=== PATIENT | male | born 1995 | race Caucasian/White ===

== ENCOUNTER → 2020-12-20 12:43 | Outpatient (CLI) | payer OTHER, MEDICAID, SELFPAY ==
--- NOTE | 2020-12-20 12:46 | DI.US.S_ITS ---
PROCEDURE: US SCROTUM INDICATIONS: LEFT TESTICULAR PAIN TECHNIQUE: Real-time scanning was performed of the scrotum and testicles, with image documentation. Color and pulse Doppler interrogation was performed of both testicles. COMPARISON: None. FINDINGS: Right: Testicle is normal in size at 4.3 x 2.7 x 3.7 cm, and homogenous in echotexture. Epididymis is normal in overall size and morphology. No hydrocele or varicoceles. Overlying scrotal skin is normal in thickness. Left: Testicle is normal in size at 3.9 x 2.3 x 2.6 cm, and homogeneous in echotexture. Epididymis is normal in overall size and morphology. No hydrocele or varicoceles. Overlying scrotal skin is normal in thickness. Doppler: Color and pulse Doppler demonstrate normal and symmetric arterial flow in both testicles. IMPRESSION: Unremarkable ultrasound examination of bilateral testes. No finding to explain patient's symptoms. Dictated by: Miguelangel Courtney M.D. on 12/20/2020 at 15:40 Approved by: Miguelangel Courtney M.D. on 12/20/2020 at 15:57
== END ==
PROVIDERS: Referring Provider Physician Assistant; Visit Provider Physician Assistant
DX: N50.812 Left testicular pain (principal)
CPT/HCPCS: 76870

== ENCOUNTER 2020-12-23 12:04 | Emergency (ER) | payer OTHER, MEDICAID, SELFPAY ==
[2020-12-23 12:16] VITALS: BP 155/83; PULSE 81; RESP 16; TEMP 36.5; O2SAT 98; BMI 32.3
--- NOTE | 2020-12-23 12:38 | ED.ABDPAIN ---
HPI - Abdominal Pain <JANELL Blanc - Last Filed: 12/23/20 17:08> General Chief Complaint: Abdominal Pain Stated Complaint: Abdominal Pain Time Seen by Provider: 12/23/20 12:08 Source: patient Mode of arrival: Family Vehicle Limitations: no limitations History of Present Illness HPI narrative: 25yo male presents to the ED for L testicular pain that started on 12/13/20 and has progressed to RLQ pain without relief.?Initially, patient felt a sharp stabbing pain while driving his car, and has been intermittently having sharp pain that radiates to his testicles, RLQ, RUQ, and suprapubic area. He was seen in the [facility] for testicular pain on 12/14/20. Last night he reports that his pain progressed significantly and he continues to have dull aching that is intermittent and transient in location.? Denies sharp stabbing pain at this moment.? 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 Denies any fever, penile discharge, swelling, redness, severe pain, vomiting, dysuria, or other concerns. His last BM was last evening, last PO intake was last night, denies changes to his urine or stool this week, and denies any STI concerns. Reports has nausea frequently related to his marijuana use and he has felt nauseated recently. Related Data Previous Rx's Medication Instructions Recorded ciprofloxacin HCl 500 mg tablet 500 mg PO BID 10 Days #20 tab 12/23/20 hydrocodone 5 mg-acetaminophen 325 1 tab PO BID PRN #10 tab 12/23/20 mg tablet metronidazole 500 mg tablet 500 mg PO TID 10 Days #30 tab 12/23/20 (Flagyl) Allergies Allergy/AdvReac Type Severity Reaction Status Date / Time sulfamethoxazole Allergy Unknown Verified 12/14/20 10:42 [From ] trimethoprim [From ] Allergy Unknown Verified 12/14/20 10:42 Review of Systems <JANELL Blanc - Last Filed: 12/23/20 17:08> Review of Systems Narrative: General: denies fever, chills Head/Neck: denies headache, neck pain Eyes: denies visual changes, eye pain Cardio: denies chest pain, palpitations Respiratory: denies shortness of breath, cough GI: Endorses right-sided colicky abdominal pain, suprapubic pain, with intermittent testicular pain, denies any vomiting, or diarrhea, reports last stool was soft : denies dysuria, hematuria, changes with urination or color of urine. MSK: denies joint pain, muscle weakness Skin: denies rash, itching Neuro: denies numbness, tingling Patient History <JANELL Blanc - Last Filed: 12/23/20 17:08> Social History Smoking Status: Never smoker Smoking Status: Never smoker alcohol intake frequency: 0-2 drinks per day Substance Use Type: marijuana Exam <JANELL Blanc - Last Filed: 12/23/20 17:08> Narrative Exam Narrative: Independently reviewed vitals signs and nursing notes. General: Awake, alert, nontoxic, no cardiorespiratory distress Head/Neck: Atraumatic, neck full range of motion Eyes: EOMI, conjunctiva normal Nose: nares patent, no rhinorrhea Mouth/Throat: moist mucus membranes, posterior pharynx normal, no oral lesions Cardio: Regular rate and rhythm, no peripheral edema Respiratory: respirations unlabored without wheezing, stridor, or rales. No retractions. GI: Abdomen soft x4 quadrants, no masses palpated, bowel tones hypoactive, pt w/tenderness at McBurney's point, positive psoas sign, negative Rovsing, tenderness to palpation to right lower quadrant and right flank, no discoloration, no rigidity. MSK: Moves all extremities, neurovascularly intact Skin: Normal capillary refill, no rash Neuro: Normal speech and cognition, normal gait Initial Vital Signs Initial Vital Signs: Vital Signs Temperature 97.7 F 12/23/20 12:16 Pulse Rate 81 12/23/20 12:16 Respiratory Rate 16 12/23/20 12:16 Blood Pressure 155/83 H 12/23/20 12:16 Pulse Oximetry 98 12/23/20 12:16 <Connor Diaz DO - Last Filed: 12/23/20 17:21> Initial Vital Signs Initial Vital Signs: Vital Signs Temperature 97.7 F 12/23/20 12:16 Pulse Rate 81 12/23/20 12:16 Respiratory Rate 16 12/23/20 12:16 Blood Pressure 155/83 H 12/23/20 12:16 Pulse Oximetry 98 12/23/20 12:16 Course <JANELL Blanc - Last Filed: 12/23/20 17:08> Orders Ordered: ED Orders 12/23/20 12:56 CT abdomen pelvis w con Stat 12/23/20 13:00 Complete Blood Count AUTO DIFF Stat Comprehensive Metabolic Panel Stat Lipase Stat Urine Microscopic Stat Discontinued Medications Sodium Chloride (Normal Saline 0.9%) 1,000 mls @ 150 mls/hr IV CONT MARIO Last Admin: 12/23/20 12:53 Dose: 150 mls/hr Documented by: ATAYLOR Ketorolac Tromethamine (Ketorolac 30 Mg/Ml Vial) 30 mg IV NOW ONE Stop: 12/23/20 12:36 Last Admin: 12/23/20 12:53 Dose: 30 mg Documented by: CARLOS Vital Signs Vital signs: Vital Signs - 8 hr 12/23/20 12:16 12/23/20 13:34 12/23/20 14:53 Temperature 97.7 F Pulse Rate 81 86 69 Respiratory Rate 16 18 Blood Pressure 155/83 H 120/57 L Pulse Oximetry 98 99 98 12/23/20 15:00 12/23/20 16:41 Temperature Pulse Rate 60 76 Respiratory Rate Blood Pressure 130/65 Pulse Oximetry 98 98 <Connor Diaz DO - Last Filed: 12/23/20 17:21> Orders Ordered: ED Orders 12/23/20 12:56 CT abdomen pelvis w con Stat 12/23/20 13:00 Complete Blood Count AUTO DIFF Stat Comprehensive Metabolic Panel Stat Lipase Stat Urine Microscopic Stat Discontinued Medications Sodium Chloride (Normal Saline 0.9%) 1,000 mls @ 150 mls/hr IV CONT MARIO Last Admin: 12/23/20 12:53 Dose: 150 mls/hr Documented by: ATAYLOR Ketorolac Tromethamine (Ketorolac 30 Mg/Ml Vial) 30 mg IV NOW ONE Stop: 12/23/20 12:36 Last Admin: 12/23/20 12:53 Dose: 30 mg Documented by: ATAYLOR Vital Signs Vital signs: Vital Signs - 8 hr 12/23/20 12:16 12/23/20 13:34 12/23/20 14:53 Temperature 97.7 F Pulse Rate 81 86 69 Respiratory Rate 16 18 Blood Pressure 155/83 H 120/57 L Pulse Oximetry 98 99 98 12/23/20 15:00 12/23/20 16:41 Temperature Pulse Rate 60 76 Respiratory Rate Blood Pressure 130/65 Pulse Oximetry 98 98 MDM - Abdominal Pain <JANELL Blanc - Last Filed: 12/23/20 17:08> Lab Data Result diagrams: 12/23/20 13:00 12/23/20 13:00 Labs: Lab Results 12/23/20 12/23/20 12/23/20 Range/Units 13:00 13:00 13:00 WBC 12.2 H (4.5-11.0) X10^3/uL RBC 5.12 (4.5-5.9) X10^6/uL Hgb 15.7 (13.5-17.5) g/dL Hct 46.9 (41-53) % MCV 91.5 (80-100) fL MCH 30.7 (26-34) PG MCHC 33.6 (30-36) % RDW 12.9 (11.6-14.8) % Plt Count 280 (150-400) X10^3/uL Neut % (Auto) 60.1 (50-75) % Lymph % (Auto) 27.5 (25-40) % [place] % (Auto) 9.1 (3-14) % Eos % (Auto) 2.8 (2-4) % Baso % (Auto) 0.5 (0-2) % Neut # (Auto) 7300 H (8060-6354) /uL Lymph # (Auto) 3400 (2524-0277) /uL [place] # (Auto) 1100 H (0-900) /uL Eos # (Auto) 300 (0-450) /uL Baso # (Auto) 100 (0-100) /uL Sodium 139 (137-145) mmol/L Potassium 4.2 (3.4-5.1) mmol/L Chloride 104 (98-107) mmol/L Carbon Dioxide 27 (22-32) mmol/L BUN 15 (9-20) mg/dL Creatinine 0.82 (0.66-1.25) mg/dL Estimated GFR > 60.0 (>60) mL/min BUN/Creatinine Ratio 18.3 (6-22) Glucose 97 (70-100) mg/dL Calcium 9.5 (8.4-10.2) mg/dL Total Bilirubin 0.8 (0.2-1.3) mg/dL AST 26 (17-59) IU/L ALT 23 (<50) IU/L Alkaline Phosphatase 46 (38-126) U/L Total Protein 8.0 (6.3-8.2) g/dL Albumin 4.8 (3.5-5.0) g/dL Globulin 3.2 (1.7-4.1) g/dL Albumin/Globulin Ratio 1.5 (1.0-2.8) Lipase 60 (23-300) U/L Urine RBC None seen (0-5/HPF) Urine WBC None seen (0-5/HPF) Urine Bacteria None seen (None) Ur Culture Indicated? Cult not indicated Micro UA Comment Microscopic normal Point of care testing: Urine Dip Bedside Urine Glucose Negative Bedside Urine Bilirubin - Negative Bedside Urine Ketone - Negative Urine Specific [place] 1.010 Bedside Urine Occult Blood +/- Bedside Urine pH 7.0 Bedside Urine Protein - Negative Bedside Urine Urobilinogen - Negative Bedside Urine Nitrite - Negative Bedside Urine Leukocytes - Negative Esterase MDM Narrative Medical decision making narrative: 25yo nontoxic appearing male with history of IBS presents to the ED for L testicular pain that started on 12/13/20 and has progressed to colicky RLQ pain without relief. Initial workup revealed a WBC of 12.2 with neutrophils of 7300, UA negative for infection, LFTs within normal limits, lipase is 60, creatinine of 0.8. CT abdomen pelvis shows distal colitis, prostatitis, diverticulitis without appendicitis per verbal dictation from radiologist. Patient was ordered Cipro and Flagyl for 10 days and given strict ED precautions. Initial ddx to include but not limited to appendicitis, cholecystitis, pancreatitis, Crohn's ileitis, epididymitis. Vital signs were within normal limits today. Patient is appropriate and amenable to discharge home. Vital signs are stable on repeat examination is unremarkable. Patient has been informed of results. Patient has been given strict return to ER precautions for any new or worsening symptoms. Patient understands to follow up closely with outpatient providers as instructed. Patient understands plan and agrees to discharge home. All questions and concerns answered at this time. <Connor Diaz DO - Last Filed: 12/23/20 17:21> Lab Data Labs: Lab Results 12/23/20 12/23/20 12/23/20 Range/Units 13:00 13:00 13:00 WBC 12.2 H (4.5-11.0) X10^3/uL RBC 5.12 (4.5-5.9) X10^6/uL Hgb 15.7 (13.5-17.5) g/dL Hct 46.9 (41-53) % MCV 91.5 (80-100) fL MCH 30.7 (26-34) PG MCHC 33.6 (30-36) % RDW 12.9 (11.6-14.8) % Plt Count 280 (150-400) X10^3/uL Neut % (Auto) 60.1 (50-75) % Lymph % (Auto) 27.5 (25-40) % [place] % (Auto) 9.1 (3-14) % Eos % (Auto) 2.8 (2-4) % Baso % (Auto) 0.5 (0-2) % Neut # (Auto) 7300 H (3462-4248) /uL Lymph # (Auto) 3400 (7541-6540) /uL [place] # (Auto) 1100 H (0-900) /uL Eos # (Auto) 300 (0-450) /uL Baso # (Auto) 100 (0-100) /uL Sodium 139 (137-145) mmol/L Potassium 4.2 (3.4-5.1) mmol/L Chloride 104 (98-107) mmol/L Carbon Dioxide 27 (22-32) mmol/L BUN 15 (9-20) mg/dL Creatinine 0.82 (0.66-1.25) mg/dL Estimated GFR > 60.0 (>60) mL/min BUN/Creatinine Ratio 18.3 (6-22) Glucose 97 (70-100) mg/dL Calcium 9.5 (8.4-10.2) mg/dL Total Bilirubin 0.8 (0.2-1.3) mg/dL AST 26 (17-59) IU/L ALT 23 (<50) IU/L Alkaline Phosphatase 46 (38-126) U/L Total Protein 8.0 (6.3-8.2) g/dL Albumin 4.8 (3.5-5.0) g/dL Globulin 3.2 (1.7-4.1) g/dL Albumin/Globulin Ratio 1.5 (1.0-2.8) Lipase 60 (23-300) U/L Urine RBC None seen (0-5/HPF) Urine WBC None seen (0-5/HPF) Urine Bacteria None seen (None) Ur Culture Indicated? Cult not indicated Micro UA Comment Microscopic normal Point of care testing: Urine Dip Bedside Urine Glucose Negative Bedside Urine Bilirubin - Negative Bedside Urine Ketone - Negative Urine Specific [place] 1.010 Bedside Urine Occult Blood +/- Bedside Urine pH 7.0 Bedside Urine Protein - Negative Bedside Urine Urobilinogen - Negative Bedside Urine Nitrite - Negative Bedside Urine Leukocytes - Negative Esterase Discharge Plan Departure Patient Disposition: Home Clinical Impression: Acute prostatitis, Colitis, acute, Diverticulitis of sigmoid colon Instructions: Prostatitis, DI for Diverticulitis, DI for Colitis Activity Restrictions/Additional Instructions: *You have been diagnosed with prostatitis, diverticulitis of sigmoid colon, and distal colitis. *What to do: *Please continue to take your regular medications as directed. [x ] New medication prescriptions sent to your pharmacy: [facility] [ ] New medication written as a paper prescription [ ] No new medications given *Please follow up with your primary care provider in 2-3 days, call for an appointment. Let them know you were seen in the Emergency Department and that we ask that you be seen in follow up. We will electronically transmit a record of today's note if your PCP is in our system *If you do not have a primary care provider please contact the [facility] Resource line at [phone]. They will ask some questions about your medical history and help get you set up with a doctor in the community. *Return to Emergency Department if you should have any new, worsening or concerning symptoms, such as [fever greater than 101F, chills, worsening pain, persistent vomiting or other bothersome symptoms] Prescriptions: New ciprofloxacin HCl 500 mg tablet 500 mg PO BID 10 Days Qty: 20 RF: 0 metronidazole [Flagyl] 500 mg tablet 500 mg PO TID 10 Days Qty: 30 RF: 0 hydrocodone-acetaminophen 5-325 mg tablet 1 tab PO BID PRN (Reason: pain) Qty: 10 RF: 0 <Connor Diaz, DO - Last Filed: 12/23/20 17:21> Cosign ED Attending Cosignature Attestation: Dr Diaz Co-Sign Statement: I was available for consultation during this patient's emergency department visit. This chart is signed by myself for administrative purposes only. I did not have direct contact with this patient during this visit. They were seen independently by the APC.
[2020-12-23] MEDS: SODIUM CHLORIDE 0.9% 1,000 ML 150 ML IV (12:53)
[2020-12-23] MEDS: KETOROLAC 30 MG/ML VIAL IV (12:53)
--- NOTE | 2020-12-23 12:56 | DI.CT.S_ITS ---
PROCEDURE: CT ABDOMEN PELVIS W CON INDICATIONS: c/f appendicitis, RLQ pain TECHNIQUE: After the administration of oral and IV contrast, axial sections were acquired from the lung bases to the pubic symphysis. Coronal and sagittal reformats were performed. For radiation dose reduction, the following was used: automated exposure control, adjustment of mA and/or kV according to patient size. COMPARISON: [facility], CT, ABDOMEN/PELVIS WITH CONTRAST, 09/17/2012, 13:11. FINDINGS: Image quality: Excellent. Lung bases: Unremarkable. Heart: No significant findings. ABDOMEN: Liver: No focal lesion. Gallbladder: No calcified gallstones. Biliary ducts: Unremarkable. Pancreas: Pancreas enhances uniformly. Spleen: Unremarkable. Adrenal Glands: No nodule. Discoid left adrenal gland. Kidneys and Ureters: No hydronephrosis. 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 No obvious kidney stones. Stomach and Bowel: No small bowel obstruction. A few colonic diverticuli. No diverticulitis. Question of mild thickening of the distal sigmoid colon and rectum. Somewhat prominent stool in the rectum. Probable visualization of the appendix which is not dilated. Peritoneum: No abnormal intraperitoneal fluid. No free air. Ventral Wall: No hernia. Abdominal Nodes: No retroperitoneal or mesenteric adenopathy by size criteria. Vessels: Aorta and inferior vena cava are normal in size. PELVIS: Pelvic Organs: Unremarkable. Bladder: Unremarkable. Pelvic Nodes: No enlarged lymph nodes. Miscellaneous: No inguinal hernias are seen. Bones: Unremarkable. IMPRESSION: 1. No appendicitis demonstrated. No free fluid. 2. Subtle sigmoid colon and rectal wall thickening. This raises the possibility of a proctitis or colitis. 3. Diverticulosis. No diverticulitis identified. 4. 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 No hydronephrosis. Dictated by: Willard Mistry M.D. on 12/23/2020 at 12:53 Approved by: Willard Mistry M.D. on 12/23/2020 at 13:01
[2020-12-23 13:13] LABS: Add Manual Diff / Slide Review NO; Basophils Absolute Auto 100 /uL (0-100); Basophils Percent Auto 0.5 % (0-2); Eosinophils Absolute Auto 300 /uL (0-450); Eosinophils Percent Auto 2.8 % (2-4); Hematocrit 46.9 % (41-53); Hemoglobin 15.7 g/dL (13.5-17.5); Lymphocytes Absolute Auto 3400 /uL (1100-4500); Lymphocytes Percent Auto 27.5 % (25-40); Mean Corpuscular HGB Conc 33.6 % (30-36); Mean Corpuscular Hemoglobin 30.7 PG (26-34); Mean Corpuscular Volume 91.5 fL (80-100); Monocytes Absolute Auto 1100 /uL (0-900); Monocytes Percent Auto 9.1 % (3-14); Neutrophils Absolute Auto 7300 /uL (1500-7000); Neutrophils Percent Auto 60.1 % (50-75); Platelet Count 280 X10^3/uL (150-400); Red Blood Cell Count 5.12 X10^6/uL (4.5-5.9); Red Cell Distribution Width 12.9 % (11.6-14.8); White Blood Cell Count 12.2 X10^3/uL (4.5-11.0)
[2020-12-23 13:17] LABS: Bacteria Urine None Seen; RBC Urine None Seen (0-5/HPF); WBC Urine None Seen (0-5/HPF)
[2020-12-23 13:28] LABS: Alanine Aminotransferase 23 IU/L (<50); Albumin 4.8 g/dL (3.5-5.0); Albumin Globulin Ratio 1.5 (1.0-2.8); Alkaline Phosphatase 46 U/L (38-126); Aspartate Aminotransferase 26 IU/L (17-59); BUN Creatinine Ratio 18.3 (6-22); Bilirubin Total 0.8 mg/dL (0.2-1.3); Blood Urea Nitrogen 15 mg/dL (9-20); Calcium 9.5 mg/dL (8.4-10.2); Carbon Dioxide 27 mmol/L (22-32); Chloride 104 mmol/L (98-107); Estimated Glomerular Filt Rate > 60.0 mL/min (>60); Globulin 3.2 g/dL (1.7-4.1); Glucose 97 mg/dL (70-100); HEMOLYSIS 30 (0-50); Lipase 60 U/L (23-300); Potassium 4.2 mmol/L (3.4-5.1); Sodium 139 mmol/L (137-145)
[2020-12-23 13:29] LABS: Culture Indicated Urine Cult Not Indicated; Urine Comments Microscopic Normal
[2020-12-23 13:34] VITALS: BP 120/57; PULSE 86; RESP 18; O2SAT 99
[2020-12-23 14:53] VITALS: PULSE 69; O2SAT 98
[2020-12-23 15:00] VITALS: PULSE 60; O2SAT 98
[2020-12-23 16:41] VITALS: BP 130/65; PULSE 76; O2SAT 98
--- NOTE | 2020-12-29 11:25 | PC.NURSE ---
Late Entry: 550ml normal saline infused, stopped at 1633. 450ml normal saline wasted.
== END 2020-12-23 16:45 | disposition home or self-care (01) ==
PROVIDERS: Emergency Provider Nurse Practitioner Critical Care Medicine
DX: N41.0 Acute prostatitis (principal); K52.9 Noninfective gastroenteritis and colitis, unspecified; K57.32 Diverticulitis of large intestine without perforation or abscess without bleeding; N50.812 Left testicular pain
CPT/HCPCS: 36415; 74177; 80053; 81003; 81015; 83690; 85025; 96361; 96374; 99284; J1885; Q9967

== ENCOUNTER 2021-01-07 10:55 | Emergency (ER) | payer OTHER, MEDICAID, SELFPAY ==
[2021-01-07] VITALS (8 sets, daily range): BP systolic 109–145; BP diastolic 55–79; PULSE 65–92; RESP 12–19; TEMP 36.8; O2SAT 96–99; BMI 30.2
--- NOTE | 2021-01-07 11:12 | ED_ITS ---
HPI - Abdominal Pain General Chief Complaint: Abdominal Pain Stated Complaint: abd pain x3 days Time Seen by Provider: 01/07/21 11:08 Source: patient Mode of arrival: Ambulatory History of Present Illness HPI narrative: Patient is a 26-year-old male who presents with abdominal pain. He has a history of IBS was recently diagnosed with colitis and prostatitis. He placed on Flagyl and Cipro on 12/23/2020 he was given 10 days of antibiotics. He finished them 5 days ago he started having testicular pain which moved up into his abdomen 3 days ago he has had increasing pain since then he has been taking Tylenol without any relief. No fever or chills. No pain with bowel movements painful or frequent urination. No nausea or vomiting. This month he has had a testicular ultrasound CT and blood work. Related Data Previous Rx's Medication Instructions Recorded hydrocodone 5 mg-acetaminophen 325 1 tab PO BID PRN #10 tab 12/23/20 mg tablet Allergies Allergy/AdvReac Type Severity Reaction Status Date / Time sulfamethoxazole Allergy Unknown Verified 01/07/21 11:16 [From ] trimethoprim [From ] Allergy Unknown Verified 01/07/21 11:16 Review of Systems Review of Systems Narrative: GENERAL: Denies chills, fatigue, malaise, fever, sweats, travel HEENT: Denies sinus pain, ear pain, sore throat, difficulty swallowing, neck pain RESPIRATORY: Denies dyspnea, cough, wheezing, hemoptysis, sputum. CARDIOVASCULAR: Denies chest pain, palpitations, orthopnea, edema GASTROINTESTINAL: See HPI : See HPI MUSCULOSKELETAL: Denies weakness, joint pain, or bony pain SKIN: No rash, no erythema, no pruritus NEUROLOGIC: Denies weakness, dizziness, headache, numbness, change in speech, confusion PSYCHIATRIC: No concerning psychosocial issues. 12 point review of systems is negative except for those stated above and HPI Patient History Social History Smoking Status: Never smoker Smoking Status: Never smoker alcohol intake frequency: 0-2 drinks per day Substance Use Type: marijuana Exam Initial Vital Signs Initial Vital Signs: Vital Signs Temperature 98.3 F 01/07/21 11:04 Pulse Rate 81 01/07/21 11:04 Respiratory Rate 14 01/07/21 11:04 Blood Pressure 145/79 H 01/07/21 11:04 Pulse Oximetry 99 01/07/21 11:04 GENERAL: Well-appearing, well-nourished and in no acute distress. HEENT: Head atraumatic,EOMI, pupils reactive, face symmetric, moist mucous membranes CARDIOVASCULAR: Regular rate and rhythm without murmurs, rubs or gallops. RESPIRATORY: Breath sounds equal bilaterally, no wheezes rales or rhonchi. ABDOMEN: Soft, mild left lower quadrant tenderness no guarding no rebound : No CVA tenderness, no testicular pain, no hernia felt however pain in right inguinal canal was tender upon palpation but no hernia no swelling-nurse Sherlyn present for exam RECTAL: Nontender prostate EXTREMITIES: Normal range of motion, no clubbing or edema. Neurovascularly intact NEUROLOGICAL: Alert and oriented x4.Normal gait and speech. SKIN: Warm, dry, no laceration, no petechiae, no rashes or lesions. Course Orders Ordered: ED Orders 01/07/21 11:37 Complete Blood Count AUTO DIFF Stat Comprehensive Metabolic Panel Stat Lipase Stat Procalcitonin Stat 01/07/21 13:49 Urine Microscopic Stat Discontinued Medications Ketorolac Tromethamine (Ketorolac 30 Mg/Ml Vial) 30 mg IV NOW ONE Stop: 01/07/21 12:35 Last Admin: 01/07/21 12:45 Dose: 30 mg Documented by: KATIE Vital Signs Vital signs: Vital Signs - 8 hr 01/07/21 12:00 01/07/21 12:30 01/07/21 13:00 Pulse Rate 66 65 70 Respiratory Rate 16 12 14 Blood Pressure 109/58 L 113/55 L Pulse Oximetry 96 97 98 01/07/21 13:30 01/07/21 14:50 01/07/21 15:02 Pulse Rate 81 79 92 H Respiratory Rate 17 19 19 Blood Pressure 116/62 116/62 Pulse Oximetry 98 97 97 MDM - Abdominal Pain Lab Data Result diagrams: 01/07/21 11:37 01/07/21 11:37 Labs: Lab Results 01/07/21 01/07/21 01/07/21 Range/Units 11:37 11:37 11:37 WBC 11.0 (4.5-11.0) X10^3/uL RBC 5.20 (4.5-5.9) X10^6/uL Hgb 16.0 (13.5-17.5) g/dL Hct 47.4 (41-53) % MCV 91.2 (80-100) fL MCH 30.9 (26-34) PG MCHC 33.8 (30-36) % RDW 13.1 (11.6-14.8) % Plt Count 280 (150-400) X10^3/uL Neut % (Auto) 65.5 (50-75) % Lymph % (Auto) 24.8 L (25-40) % [place] % (Auto) 7.6 (3-14) % Eos % (Auto) 1.5 L (2-4) % Baso % (Auto) 0.6 (0-2) % Neut # (Auto) 7200 H (1117-1513) /uL Lymph # (Auto) 2700 (8299-0656) /uL [place] # (Auto) 800 (0-900) /uL Eos # (Auto) 200 (0-450) /uL Baso # (Auto) 100 (0-100) /uL Sodium 139 (137-145) mmol/L Potassium 4.2 (3.4-5.1) mmol/L Chloride 105 (98-107) mmol/L Carbon Dioxide 29 (22-32) mmol/L BUN 14 (9-20) mg/dL Creatinine 0.76 (0.66-1.25) mg/dL Estimated GFR > 60.0 (>60) mL/min BUN/Creatinine Ratio 18.4 (6-22) Glucose 104 H (70-100) mg/dL Calcium 9.7 (8.4-10.2) mg/dL Total Bilirubin 1.0 (0.2-1.3) mg/dL AST 46 (17-59) IU/L ALT 77 H (<50) IU/L Alkaline Phosphatase 44 (38-126) U/L Total Protein 7.9 (6.3-8.2) g/dL Albumin 4.8 (3.5-5.0) g/dL Globulin 3.1 (1.7-4.1) g/dL Albumin/Globulin Ratio 1.5 (1.0-2.8) Lipase 61 (23-300) U/L Procalcitonin 0.04 (<0.5) ng/mL Urine RBC (0-5/HPF) Urine WBC (0-5/HPF) Amorphous Sediment Urine Bacteria (None) Ur Culture Indicated? 01/07/21 Range/Units 13:49 WBC (4.5-11.0) X10^3/uL RBC (4.5-5.9) X10^6/uL Hgb (13.5-17.5) g/dL Hct (41-53) % MCV (80-100) fL MCH (26-34) PG MCHC (30-36) % RDW (11.6-14.8) % Plt Count (150-400) X10^3/uL Neut % (Auto) (50-75) % Lymph % (Auto) (25-40) % [place] % (Auto) (3-14) % Eos % (Auto) (2-4) % Baso % (Auto) (0-2) % Neut # (Auto) (6822-7802) /uL Lymph # (Auto) (2977-6878) /uL [place] # (Auto) (0-900) /uL Eos # (Auto) (0-450) /uL Baso # (Auto) (0-100) /uL Sodium (137-145) mmol/L Potassium (3.4-5.1) mmol/L Chloride (98-107) mmol/L Carbon Dioxide (22-32) mmol/L BUN (9-20) mg/dL Creatinine (0.66-1.25) mg/dL Estimated GFR (>60) mL/min BUN/Creatinine Ratio (6-22) Glucose (70-100) mg/dL Calcium (8.4-10.2) mg/dL Total Bilirubin (0.2-1.3) mg/dL AST (17-59) IU/L ALT (<50) IU/L Alkaline Phosphatase (38-126) U/L Total Protein (6.3-8.2) g/dL Albumin (3.5-5.0) g/dL Globulin (1.7-4.1) g/dL Albumin/Globulin Ratio (1.0-2.8) Lipase (23-300) U/L Procalcitonin (<0.5) ng/mL Urine RBC None seen (0-5/HPF) Urine WBC None seen (0-5/HPF) Amorphous Sediment 1+ Urine Bacteria None seen (None) Ur Culture Indicated? Cult not indicated Point of care testing: Urine Dip Bedside Urine Glucose Negative Bedside Urine Bilirubin - Negative Bedside Urine Ketone - Negative Urine Specific [place] 1.015 Bedside Urine Occult Blood +/- Bedside Urine pH 7.0 Bedside Urine Protein - Negative Bedside Urine Urobilinogen - Negative Bedside Urine Nitrite - Negative Bedside Urine Leukocytes - Negative Esterase MDM Narrative Medical decision making narrative: Patient is a young 26-year-old male previously diagnosed with prostatitis and colitis placed on antibiotics. Started having increasing pain including some mild testicular pain and now abdominal pain. Blood work is overall reassuring procalcitonin is negative. He has previously had a scrotum ultrasound already this month. Testicular exam is relatively unremarkable he has some mild pain is inguinal canal but no hernia is appreciated. He is feeling better after Toradol. At this time I do not see indication to restart antibiotics recommend watchful waiting and return as needed. His abdomen is relatively soft. He has some mild discomfort. Discussed with him at the no need for imaging. Recommend follow-up outpatient. Discharge Plan Departure Patient Disposition: Home Clinical Impression: Abdominal pain Qualifiers: Abdominal location: generalized Qualified Code(s): R10.84 - Generalized abdominal pain Instructions: DI for Abdominal Pain-Adult Activity Restrictions/Additional Instructions: *You have been diagnosed with abdominal pain *What to do: At this time no need for antibiotics. Please follow-up with primary care provider for further workup. *Continue to take medications as directed Motrin 600 mg every 6 hours if needed for [id number] pain Tylenol 650 mg and free for 6 hours if needed for [id number] pain *Follow up with your primary care provider in 2-3 days *Return to ER if you should have increasing pain, fever, persistent vomiting or any new, worsening or concerning symptoms Prescriptions: No Action hydrocodone-acetaminophen 5-325 mg tablet 1 tab PO BID PRN (Reason: pain) Qty: 10 RF: 0 Referrals: Miscellaneous,Doctor[facility] [Primary Care Provider] -
[2021-01-07 12:43] LABS: Add Manual Diff / Slide Review NO; Basophils Absolute Auto 100 /uL (0-100); Basophils Percent Auto 0.6 % (0-2); Eosinophils Absolute Auto 200 /uL (0-450); Eosinophils Percent Auto 1.5 % (2-4); Hematocrit 47.4 % (41-53); Lymphocytes Absolute Auto 2700 /uL (1100-4500); Lymphocytes Percent Auto 24.8 % (25-40); Mean Corpuscular HGB Conc 33.8 % (30-36); Mean Corpuscular Hemoglobin 30.9 PG (26-34); Mean Corpuscular Volume 91.2 fL (80-100); Monocytes Absolute Auto 800 /uL (0-900); Monocytes Percent Auto 7.6 % (3-14); Neutrophils Absolute Auto 7200 /uL (1500-7000); Neutrophils Percent Auto 65.5 % (50-75); Platelet Count 280 X10^3/uL (150-400); Red Cell Distribution Width 13.1 % (11.6-14.8)
[2021-01-07] MEDS: KETOROLAC 30 MG/ML VIAL IV (12:45)
[2021-01-07 12:48] LABS: Alanine Aminotransferase 77 IU/L (<50); Albumin 4.8 g/dL (3.5-5.0); Albumin Globulin Ratio 1.5 (1.0-2.8); Alkaline Phosphatase 44 U/L (38-126); Aspartate Aminotransferase 46 IU/L (17-59); BUN Creatinine Ratio 18.4 (6-22); Blood Urea Nitrogen 14 mg/dL (9-20); Calcium 9.7 mg/dL (8.4-10.2); Carbon Dioxide 29 mmol/L (22-32); Chloride 105 mmol/L (98-107); Estimated Glomerular Filt Rate > 60.0 mL/min (>60); Globulin 3.1 g/dL (1.7-4.1); Glucose 104 mg/dL (70-100); HEMOLYSIS < 15 (0-50); Lipase 61 U/L (23-300); Potassium 4.2 mmol/L (3.4-5.1); Sodium 139 mmol/L (137-145); Total Protein 7.9 g/dL (6.3-8.2)
[2021-01-07 14:00] LABS: RBC Urine None Seen (0-5/HPF); WBC Urine None Seen (0-5/HPF)
[2021-01-07 14:01] LABS: Amorphous Sediment Urine 1+; Bacteria Urine None Seen; Culture Indicated Urine Cult Not Indicated
[2021-01-07 14:41] LABS: Procalcitonin 0.04 ng/mL (<0.5)
== END 2021-01-07 15:03 | disposition home or self-care (01) ==
PROVIDERS: Emergency Provider Emergency Medicine
DX: R10.84 Generalized abdominal pain (principal); N50.812 Left testicular pain
CPT/HCPCS: 36415; 80053; 81003; 81015; 83690; 84145; 85025; 96374; 99284; J1885

== ENCOUNTER → 2021-08-20 09:39 | Outpatient (CLI) | payer OTHER, MEDICAID, SELFPAY | PROVIDERS: Visit Provider Nurse Practitioner Family | DX: R31.9 Hematuria, unspecified (principal) | CPT/HCPCS: 87086 ==

== ENCOUNTER 2021-08-21 10:28 | Emergency (ER) | payer OTHER, MEDICAID, SELFPAY ==
[2021-08-21] VITALS (7 sets, daily range): BP systolic 129–147; BP diastolic 58–84; PULSE 74–96; RESP 16–18; TEMP 37.1; O2SAT 99–100; BMI 31.0
[2021-08-21 11:47] LABS: Appearance Urine UA CLEAR; Bilirubin Urine UA NEGATIVE (NEGATIVE); Color Urine UA YELLOW; Glucose Urine UA NEGATIVE (Negative); Ketones Urine UA NEGATIVE (NEGATIVE); Leukocyte Esterase Urine UA NEGATIVE (NEGATIVE); Nitrite Urine UA NEGATIVE (Negative); Occult Blood Urine UA TRACE-INTACT (Negative); Protein Urine UA NEGATIVE (Negative); Specific Gravity Urine UA 1.015 (1.000-1.035); Urobilinogen Urine UA 0.2 E.U./dL (0.2)
[2021-08-21 11:54] LABS: Bacteria Urine None Seen; Culture Indicated Urine Cult Not Indicated; RBC Urine 0-1/HPF (0-5/HPF); Squamous Epithelial Cell Urine None Seen (0-5/HPF); WBC Urine None Seen (0-5/HPF)
--- NOTE | 2021-08-21 12:20 | DI.US.S_ITS ---
PROCEDURE: US SCROTUM INDICATIONS: right inguinal/testicular pain TECHNIQUE: Real-time scanning was performed of the scrotum and testicles, with image documentation. Color and pulse Doppler interrogation was performed of both testicles. COMPARISON: [facility], CT, CT KIDNEY URETER BLADDER (KUB), 08/21/2021, 12:45. [facility], CT, CT ABDOMEN PELVIS W CON, 12/23/2020, 13:35. [facility], US, US SCROTUM, 12/20/2020, 13:06. FINDINGS: Right: Testicle is normal in size at 4.4 x 2.3 x 2.7 cm, and homogenous in echotexture. Epididymis is normal in overall size and morphology. There is a 4 mm epididymal cyst in the epididymal head. No hydrocele or varicoceles. Overlying scrotal skin is normal in thickness. Left: Testicle is normal in size at 4.6 x 2.5 x 2.6 cm, and homogeneous in echotexture. Epididymis is normal in overall size and morphology. There is a 2 mm cyst in the epididymal head. No hydrocele or varicoceles. Overlying scrotal skin is normal in thickness. Doppler: Color and pulse Doppler demonstrate normal and symmetric arterial flow in both testicles. No hyperemia in the epididymis in either side. Normal sized lymph nodes are noted in the right groin. IMPRESSION: 1. Normal testicles bilaterally. No testicular torsion or mass. 2. No epididymitis. Small epididymal cysts are noted bilaterally. 3. Normal sized right inguinal lymph nodes are noted. Dictated by: Scot Goodwin M.D. on 08/21/2021 at 12:23 Approved by: Scot Goodwin M.D. on 08/21/2021 at 12:43
--- NOTE | 2021-08-21 12:26 | ED_ITS ---
HPI - Male Genitourinary <JANELL Blanc - Last Filed: 08/21/21 16:52> General Chief complaint: Urogenital-Male Stated complaint: Lower abd/genital pain Time Seen by Provider: 08/21/21 12:03 Source: patient Mode of arrival: Ambulatory History of Present Illness HPI Narrative: This is a 26-year-old male who presents to the emergency department complaining of testicular pain which radiates up his right groin which has been ongoing since he had diverticulitis, prostatitis, and colitis in December of 2020. Patient states that he got better after he was treated with antibiotics but states he had ongoing testicular pain since then which recurred after treatment. Patient has establish care with Mulu Watt at [facility] and his appointment is October 19, 2021. Patient denies any fever, vomiting, blood in his urine or his stool, denies any nausea, states that he has low pelvic discomfort primarily on the right. He denies any abnormal penile discharge or tenderness to his scrotum or testicles. He states that when he is having a bowel movement the pressure in his pelvis is uncomfortable but he denies any rectal pain. He denies any epigastric pain, chest pain, back pain, or other symptom. Related Data Previous Rx's Medication Instructions Recorded cephalexin 500 mg tablet 250 mg PO BID 7 Days #7 tab 08/21/21 Allergies Allergy/AdvReac Type Severity Reaction Status Date / Time sulfamethoxazole Allergy Unknown Verified 08/21/21 10:40 [From ] trimethoprim [From ] Allergy Unknown Verified 08/21/21 10:40 Review of Systems <JANELL Blanc - Last Filed: 08/21/21 16:52> Review of Systems Narrative: General: denies fever, chills, malaise, sweats, fatigue Head/Neck: denies headache, neck pain, dizziness Eyes: denies visual changes, eye pain Cardio: denies chest pain, palpitations, edema Respiratory: denies dyspnea, cough, orthopnea GI: denies abdominal pain, nausea, vomiting, or diarrhea : denies dysuria, hematuria, urinary retention, frequency or incontinence MSK: denies joint pain, muscle weakness Skin: denies rash, itching, skin lesions or other Neuro: denies numbness, tingling Patient History <JANELL Blanc - Last Filed: 08/21/21 16:52> Social History Smoking Status: Never smoker Smoking Status: Never smoker alcohol intake frequency: 0-2 drinks per day Substance Use Type: marijuana Exam <JANELL Blanc - Last Filed: 08/21/21 16:52> Narrative Exam Narrative: Independently reviewed vitals signs and nursing notes. General: cooperative, comfortable, in no acute distress, well developed and well groomed Head: atraumatic, symmetrical facial expressions Neck: supple, atraumatic, without lymphadenopathy. Eyes: pupils equal round and reactive, EOMI, conjunctiva normal Nose: nares patent, no rhinorrhea Mouth/Throat: uvula midline, moist mucus membranes Cardiovascular: regular rate and rhythm, no peripheral edema, warm extremities Respiratory: normal effort, able to speak in complete sentences, no audible wheezing, stridor, or rales. No retractions or tachypnea. GI: abdomen soft, nontender to palpation, nondistended, no masses, no exquisite tenderness with exam, without guarding or rebound. MSK: moves all extremities, ambulatory w/steady gait, neurovascularly intact, no weakness : No tenderness to pressure on scrotum, no tenderness over epididymis' bilaterally, right groin tenderness with palpation, no tenderness or lymphadenopathy to groin, prostate exam without significant tenderness, Hemoccult negative, no stool in rectal vault, prostate firm without boggginess Skin: brisk capillary refill, no rash, no erythema Neuro: normal speech and cognition, A&O x3, normal tone Psych: mental status is grossly normal, congruent mood, normal affect, pleasant and cooperative Initial Vital Signs Initial Vital Signs: Vital Signs Temperature 98.8 F 08/21/21 10:37 Pulse Rate 78 08/21/21 10:37 Respiratory Rate 17 08/21/21 10:37 Blood Pressure 147/84 H 08/21/21 10:37 Pulse Oximetry 100 08/21/21 10:37 <Ariana Lanier DO - Last Filed: 08/22/21 07:13> Initial Vital Signs Initial Vital Signs: Vital Signs Temperature 98.8 F 08/21/21 10:37 Pulse Rate 78 08/21/21 10:37 Respiratory Rate 17 08/21/21 10:37 Blood Pressure 147/84 H 08/21/21 10:37 Pulse Oximetry 100 08/21/21 10:37 Course <JANELL Blanc - Last Filed: 08/21/21 16:52> Orders Ordered: Discontinued Medications Cephalexin HCl (Cephalexin 250 Mg Capsule) 500 mg PO NOW ONE Stop: 08/21/21 14:37 Last Admin: 08/21/21 14:42 Dose: 500 mg Documented by: [email or web address] Ketorolac Tromethamine (Ketorolac 10 Mg Tablet) 10 mg PO NOW ONE Stop: 08/21/21 14:37 Last Admin: 08/21/21 14:41 Dose: 10 mg Documented by: [email or web address] Vital Signs Vital signs: Vital Signs - 8 hr 08/21/21 10:37 08/21/21 11:33 08/21/21 11:34 Temperature 98.8 F Pulse Rate 78 94 H 90 Respiratory Rate 17 Blood Pressure 147/84 H 134/77 Pulse Oximetry 100 99 100 08/21/21 11:40 08/21/21 13:31 08/21/21 13:32 Temperature Pulse Rate 96 H 74 74 Respiratory Rate 18 16 Blood Pressure 134/78 129/58 L Pulse Oximetry 99 100 100 08/21/21 14:48 Temperature Pulse Rate 90 Respiratory Rate 16 Blood Pressure 129/62 Pulse Oximetry 99 <Ariana Lanier DO - Last Filed: 08/22/21 07:13> Orders Ordered: Discontinued Medications Cephalexin HCl (Cephalexin 250 Mg Capsule) 500 mg PO NOW ONE Stop: 08/21/21 14:37 Last Admin: 08/21/21 14:42 Dose: 500 mg Documented by: [email or web address] Ketorolac Tromethamine (Ketorolac 10 Mg Tablet) 10 mg PO NOW ONE Stop: 08/21/21 14:37 Last Admin: 08/21/21 14:41 Dose: 10 mg Documented by: [email or web address] Vital Signs Vital signs: Vital Signs - 8 hr 08/21/21 10:37 08/21/21 11:33 08/21/21 11:34 Temperature 98.8 F Pulse Rate 78 94 H 90 Respiratory Rate 17 Blood Pressure 147/84 H 134/77 Pulse Oximetry 100 99 100 08/21/21 11:40 08/21/21 13:31 08/21/21 13:32 Temperature Pulse Rate 96 H 74 74 Respiratory Rate 18 16 Blood Pressure 134/78 129/58 L Pulse Oximetry 99 100 100 08/21/21 14:48 Temperature Pulse Rate 90 Respiratory Rate 16 Blood Pressure 129/62 Pulse Oximetry 99 MDM - Male Genitourinary <Leighann Esau Espinosa, [facility] - Last Filed: 08/21/21 16:52> Lab Data Labs: Lab Results 08/21/21 08/21/21 Range/Units 11:40 11:40 Urine Color Yellow Urine Appearance Clear Urine pH 7.0 (4.5-8.0) Ur Specific Potter 1.015 (1.000-1.035) Urine Protein Negative (Negative) Urine Glucose (UA) Negative (Negative) g/dL Urine Ketones Negative (NEGATIVE) Urine Occult Blood Trace-intact (Negative) Urine Nitrate Negative (Negative) Urine Bilirubin Negative (NEGATIVE) Urine Urobilinogen 0.2 (0.2) E.U./dL Ur Leukocyte Esterase Negative (NEGATIVE) Urine RBC 0-1/hpf (0-5/HPF) Urine WBC None seen (0-5/HPF) Ur Squamous Epith Cells None seen (0-5/HPF) Urine Bacteria None seen (None) Ur Culture Indicated? Cult not indicated Ur Chlamydia DNA (PCR) Not detected N gonorrhoeae DNA (PCR) Not detected Imaging Data CT scan - abdomen/pelvis: Radiologist's Impression: PROCEDURE:? CT KIDNEY URETER BLADDER (KUB) ? INDICATIONS:? rt groin/testicular pain c/f nephrolithiasis on RT, hematuri ? TECHNIQUE:? Axial sections were acquired from the lung bases to the pubic symphysis.? Coronal and sagittal reformats were performed.? For radiation dose reduction, the following was used: ?automated exposure control, adjustment of mA and/or kV according to patient size.? ? COMPARISON:? [facility], CT, CT ABDOMEN PELVIS W CON, 12/23/2020, 13:35. ? FINDINGS:? Image quality:? Excellent.? ? Lung bases:? Unremarkable.? ? Heart:? No significant findings. ? URINARY: Kidneys and ureters:? 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 No nephrolithiasis or hydronephrosis.? There is possible trace right periureteral fat stranding. ? Bladder:? Normal wall thickness. No stones. ? ? ? ABDOMEN: Liver:? Unremarkable.? ? Gallbladder:? Unremarkable. Biliary ducts:? Unremarkable.? ? Pancreas:? Unremarkable.? ? Spleen:? Unremarkable.? ? Adrenal Glands:? Unremarkable.? ? ? Stomach and Bowel:? Stomach, small bowel loops, and colon are unremarkable.? Normal appendix.? Tiny hiatal hernia. Peritoneum:? No abnormal intraperitoneal fluid.? No free air.? ? Ventral Wall: ? Tiny fat containing periumbilical hernia. Abdominal Nodes:? No enlarged retroperitoneal or mesenteric lymph nodes.? Vessels:? Aorta and inferior vena cava are normal in size.? ? PELVIS: Pelvic Organs:? Unremarkable.? ? Pelvic Nodes: Unremarkable. Miscellaneous: No inguinal hernias are seen. ? ? ? Bones:? The lateral process of L5 articulates with the left sandrine sacrum, which can be associated with pain. ? IMPRESSION:? 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 There is questionable trace right periureteral fat stranding without nephrolithiasis or hydronephrosis.? Recommend clinical correlation to exclude ascending infection. ? ? ? Dictated by: Steve Banuelos M.D. on 08/21/2021 at 13:18 ? ? Approved by: Steve Banuelos M.D. on 08/21/2021 at 13:34 ? US - abdomen: Radiologist's Impression: PROCEDURE:? US SCROTUM ? INDICATIONS:? right inguinal/testicular pain ? TECHNIQUE:? Real-time scanning was performed of the scrotum and testicles, with image documentation.? Color and pulse Doppler interrogation was performed of both testicles.? ? COMPARISON:? [facility], CT, CT KIDNEY URETER BLADDER (KUB), 08/21/2021, 12:45.? [facility], CT, CT ABDOMEN PELVIS W CON, 12/23/2020, 13:35.? [facility], US, US SCROTUM, 12/20/2020, 13:06. ? FINDINGS:? ? Right:? Testicle is normal in size at 4.4 x 2.3 x 2.7 cm, and homogenous in echotexture.? Epididymis is normal in overall size and morphology.? There is a 4 mm epididymal cyst in the epididymal head.? No hydrocele or varicoceles.? Overlying scrotal skin is normal in thickness.? ? Left:? Testicle is normal in size at 4.6 x 2.5 x 2.6 cm, and homogeneous in echotexture.? Epididymis is normal in overall size and morphology.? There is a 2 mm cyst in the epididymal head.? No hydrocele or varicoceles.? Overlying scrotal skin is normal in thickness.? ? Doppler:? Color and pulse Doppler demonstrate normal and symmetric arterial flow in both testicles.? No hyperemia in the epididymis in either side. ? Normal sized lymph nodes are noted in the right groin. ? IMPRESSION:? ? 1. Normal testicles bilaterally.? No testicular torsion or mass. ? 2. No epididymitis.? Small epididymal cysts are noted bilaterally.? ? 3. Normal sized right inguinal lymph nodes are noted.? ? ? Dictated by: Scot Goodwin M.D. on 08/21/2021 at 12:23 ? ? Approved by: Scot Goodwin M.D. on 08/21/2021 at 12:43 ? MDM Narrative Medical decision making narrative: This is a 26-year-old male who presents to the emergency department complaining testicular pain, some dysuria and right groin pain he states this pain has been here since December when was diagnosed with colitis, diverticulitis, prostatitis. Patient has not had any vomiting, diarrhea, denies any blood in his stool, prostate exam today without tenderness, hemoccult was negative, no history of enlarged prostate. Patient has right-sided groin tenderness to palpation, scrotum ultrasound obtained and no torsion or mass, no epididymitis, small epididymal cysts are noted bilaterally, normal size right inguinal lymph nodes are noted, abdominal pelvis CT without contrast obtained to spare patient contrast today without any acute urine today had blood in it, he went to walk-in clinic yesterday and his UA showed hematuria as well. 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 There is questionable trace right appear ureteral fat stranding without nephrolithiasis or hydronephrosis. No abdominal intraperitoneal fluid or free air. Urine is negative for gonorrhea and chlamydia via PCR. Urine culture from yesterday in the walk-in clinic was negative. Patient was treated with Keflex x7 days and encouraged to follow-up with urology for hematuria 2 days without nephrolithiasis or hydronephrosis. Encourage patient to follow-up with his primary care provider if he does not improve or return to the emergency department if he has any worsening of this pain. He has been afebrile, without nausea or vomiting, without blood in his stool and declined wanting any blood work today if he could avoid it. Patient did not have any tenderness over left lower quadrant with exam, this is less likely to be diverticulitis, colitis, or prostatitis because patient does not have any pain with bowel movement, no left lower quadrant tenderness, no blood in his stool, only complains of right groin tenderness, and pain when he urinates. Encourage patient to follow-up with urology, and to follow-up with general surgery for colonoscopy if this is not helpful, and to see his primary care provider if ongoing. No peritoneal signs on abdominal exam. Patient remains p.o. tolerant. Serial abdominal exam without increase in abdominal pain. Given history and exam, low suspicion for acute abdominal process, such as acute cholecystitis, pancreatitis, perforated viscus, atypical appendicitis, colitis, diverticulitis or torsion. Extensive conversation about ER return precautions and need for close follow-up. Patient is appropriate and amenable to discharge home. Vital signs are stable on repeat examination is unremarkable. Patient has been informed of results. Patient has been given strict return to ER precautions for any new or worsening symptoms. Patient understands to follow up closely with outpatient providers as instructed. Patient understands plan and agrees to discharge home. All questions and concerns answered at this time. <Ariana Lanier, DO - Last Filed: 08/22/21 07:13> Lab Data Labs: Lab Results 08/21/21 08/21/21 Range/Units 11:40 11:40 Urine Color Yellow Urine Appearance Clear Urine pH 7.0 (4.5-8.0) Ur Specific Potter 1.015 (1.000-1.035) Urine Protein Negative (Negative) Urine Glucose (UA) Negative (Negative) g/dL Urine Ketones Negative (NEGATIVE) Urine Occult Blood Trace-intact (Negative) Urine Nitrate Negative (Negative) Urine Bilirubin Negative (NEGATIVE) Urine Urobilinogen 0.2 (0.2) E.U./dL Ur Leukocyte Esterase Negative (NEGATIVE) Urine RBC 0-1/hpf (0-5/HPF) Urine WBC None seen (0-5/HPF) Ur Squamous Epith Cells None seen (0-5/HPF) Urine Bacteria None seen (None) Ur Culture Indicated? Cult not indicated Ur Chlamydia DNA (PCR) Not detected N gonorrhoeae DNA (PCR) Not detected Discharge Plan Departure Patient Disposition: Home Clinical Impression: Pain in both testicles Hematuria Qualifiers: Hematuria type: unspecified type Qualified Code(s): R31.9 - Hematuria, unspecified Instructions: DI for Hematuria Activity Restrictions/Additional Instructions: *You have been diagnosed with blood in your urine also called hematuria. Your CT today showed that you have a horseshoe shaped kidney with a partially du plicated left renal collecting system. There is a small amount of periureteral inflammation without any sign of stone or obstruction. There were no abnormalities with your other organs. Your testicular ultrasound showed that your testicles were normal bilaterally, there is no torsion, mass, infection of the epididymis. There are benign epididymal cysts, and you have right-sided enlarged lymph nodes. Please take the Keflex twice a day for 7 days. If you do not get any better, please call and make an appointment with Dr. Myers with urology. You may also call the [facility] office and schedule an appointment for colonoscopy if this is indicated. Please follow-up with your primary care provider about your symptoms. Please return to the emergency department for any worsening of your symptoms, high fever, nausea vomiting, or worsening of your pain. You may take Tylenol and ibuprofen as needed, please stay hydrated. *What to do: *Please continue to take your regular medications as directed. [ x] New medication prescriptions sent to your pharmacy: [[facility]] [ ] New medication written as a paper prescription [ ] No new medications given *Please follow up with your primary care provider in 2-3 days, call for an appointment. Let them know you were seen in the Emergency Department and that we asked that you be seen for follow-up. We will electronically transmit a record of today's note if your PCP is in our system *If you do not have a primary care provider please contact [phone] to establish care with one of the [facility] primary care providers. *Return to Emergency Department if you should have any new, worsening or concerning symptoms, such as [fever greater than 101F, chills, worsening pain, persistent vomiting or other bothersome symptoms] Prescriptions: New cephalexin 500 mg tablet 250 mg PO BID 7 Days Qty: 7 0RF Referrals: [facility] [Provider Group] - 7-10 days (for colonoscopy) Mulu Watt MD [Physician] - Vitaliy Myers MD [Physician] - 3-5 days (for evaluation of your prostate/bladder/kidney) <Ariana Lanier DO - Last Filed: 08/22/21 07:13> Cosign ED Attending Cosradature Attestation: I was immediately available in the department for consultation. Documentation has been reviewed. I agree with assessment and plan.
--- NOTE | 2021-08-21 12:33 | DI.CT.S_ITS ---
PROCEDURE: CT KIDNEY URETER BLADDER (KUB) INDICATIONS: rt groin/testicular pain c/f nephrolithiasis on RT, hematuri TECHNIQUE: Axial sections were acquired from the lung bases to the pubic symphysis. Coronal and sagittal reformats were performed. For radiation dose reduction, the following was used: automated exposure control, adjustment of mA and/or kV according to patient size. COMPARISON: [facility], CT, CT ABDOMEN PELVIS W CON, 12/23/2020, 13:35. FINDINGS: Image quality: Excellent. Lung bases: Unremarkable. Heart: No significant findings. 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 No nephrolithiasis or hydronephrosis. There is possible trace right periureteral fat stranding. Bladder: Normal wall thickness. No stones. ABDOMEN: Liver: Unremarkable. Gallbladder: Unremarkable. Biliary ducts: Unremarkable. Pancreas: Unremarkable. Spleen: Unremarkable. Adrenal Glands: Unremarkable. Stomach and Bowel: Stomach, small bowel loops, and colon are unremarkable. Normal appendix. Tiny hiatal hernia. Peritoneum: No abnormal intraperitoneal fluid. No free air. Ventral Wall: Tiny fat containing periumbilical hernia. Abdominal Nodes: No enlarged retroperitoneal or mesenteric lymph nodes. Vessels: Aorta and inferior vena cava are normal in size. PELVIS: Pelvic Organs: Unremarkable. Pelvic Nodes: Unremarkable. Miscellaneous: No inguinal hernias are seen. Bones: The lateral process of L5 articulates with the left sandrine sacrum, which can be associated with pain. 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 There is questionable trace right periureteral fat stranding without nephrolithiasis or hydronephrosis. Recommend clinical correlation to exclude ascending infection. Dictated by: Steve Banuelos M.D. on 08/21/2021 at 13:18 Approved by: Steve Banuelos M.D. on 08/21/2021 at 13:34
[2021-08-21 14:08] LABS: Urine N gonorrhoeae NOT DETECTED
[2021-08-21 14:23] LABS: Urine Chlamydia NOT DETECTED
[2021-08-21] MEDS: KETOROLAC 10 MG TABLET PO (14:41)
[2021-08-21] MEDS: cephALEXin 250 MG CAPSULE 500 MG PO (14:42)
== END 2021-08-21 14:50 | disposition home or self-care (01) ==
PROVIDERS: Emergency Medicine; Emergency Provider Nurse Practitioner Critical Care Medicine
DX: N50.812 Left testicular pain (principal); N50.811 Right testicular pain; R31.9 Hematuria, unspecified; R30.0 Dysuria
CPT/HCPCS: 74176; 76870; 81001; 87086; 87491; 87591; 99283

== ENCOUNTER → 2022-01-29 12:33 | Outpatient (CLI) | payer OTHER, MEDICAID, SELFPAY ==
[2022-01-29 13:03] LABS: Appearance Urine UA CLEAR; Bilirubin Urine UA NEGATIVE (NEGATIVE); Color Urine UA YELLOW; Glucose Urine UA NEGATIVE (Negative); Ketones Urine UA 1+ (NEGATIVE); Leukocyte Esterase Urine UA NEGATIVE (NEGATIVE); Nitrite Urine UA NEGATIVE (Negative); Occult Blood Urine UA TRACE-INTACT (Negative); Protein Urine UA TRACE (Negative); Urobilinogen Urine UA 0.2 E.U./dL (0.2); pH Urine UA 5.5 (4.5-8.0)
[2022-01-29 13:45] LABS: Add Manual Diff / Slide Review NO; Basophils Absolute Auto 0 /uL (0-100); Basophils Percent Auto 0.3 % (0-2); Eosinophils Absolute Auto 100 /uL (0-450); Eosinophils Percent Auto 0.3 % (2-4); Hemoglobin 14.3 g/dL (13.5-17.5); Lymphocytes Absolute Auto 1900 /uL (1100-4500); Lymphocytes Percent Auto 12.7 % (25-40); Mean Corpuscular Hemoglobin 30.5 PG (26-34); Mean Corpuscular Volume 89.7 fL (80-100); Monocytes Absolute Auto 1100 /uL (0-900); Monocytes Percent Auto 7.2 % (3-14); Neutrophils Absolute Auto 12100 /uL (1500-7000); Neutrophils Percent Auto 79.5 % (50-75); Platelet Count 279 X10^3/uL (150-400); Red Blood Cell Count 4.69 X10^6/uL (4.5-5.9); Red Cell Distribution Width 12.7 % (11.6-14.8); White Blood Cell Count 15.2 X10^3/uL (4.5-11.0)
[2022-01-29 14:09] LABS: Alanine Aminotransferase 62 IU/L (<50); Albumin 4.7 g/dL (3.5-5.0); Albumin Globulin Ratio 1.4 (1.0-2.8); Alkaline Phosphatase 51 U/L (38-126); Aspartate Aminotransferase 31 IU/L (17-59); BUN Creatinine Ratio 19.3 (6-22); Bilirubin Total 0.9 mg/dL (0.2-1.3); Blood Urea Nitrogen 17 mg/dL (9-20); Calcium 9.3 mg/dL (8.4-10.2); Carbon Dioxide 24 mmol/L (22-32); Chloride 102 mmol/L (98-107); Estimated Glomerular Filt Rate > 60 mL/min (>60); Globulin 3.4 g/dL (1.7-4.1); Glucose 101 mg/dL (70-100); HEMOLYSIS < 15 (0-50); Potassium 3.7 mmol/L (3.4-5.1); Sodium 140 mmol/L (137-145); Total Protein 8.1 g/dL (6.3-8.2)
[2022-01-29 15:02] LABS: Urine N gonorrhoeae NOT DETECTED
[2022-01-29 15:03] LABS: Urine Chlamydia NOT DETECTED
== END ==
PROVIDERS: PCP Nurse Practitioner; Referring Provider Nurse Practitioner; Visit Provider Nurse Practitioner
DX: N50.812 Left testicular pain (principal); N50.811 Right testicular pain; N50.819 Testicular pain, unspecified; R31.29 Other microscopic hematuria
CPT/HCPCS: 36415; 80053; 81003; 85025; 87086; 87491; 87591

== ENCOUNTER → 2022-01-30 14:03 | Outpatient (CLI) | payer OTHER, MEDICAID, SELFPAY ==
--- NOTE | 2022-01-30 14:04 | DI.US.S_ITS ---
PROCEDURE: US SCROTUM INDICATIONS: unresolved testicular pain TECHNIQUE: Real-time scanning was performed of the scrotum and testicles, with image documentation. Color and pulse Doppler interrogation was performed of both testicles. COMPARISON: None. FINDINGS: Right: Testicle is normal in size at 2.3 x 2.8 x 4.6 cm, and homogenous in echotexture. Small epididymal head cyst measuring 3 millimeters. No hydrocele or varicoceles. Overlying scrotal skin is normal in thickness. Left: Testicle is normal in size at 2.5 x 3.1 x 4.5 cm, and homogeneous in echotexture. Small epididymal head cyst measuring 3 millimeters. No hydrocele or varicoceles. Overlying scrotal skin is normal in thickness. Doppler: Color and pulse Doppler demonstrate normal and symmetric arterial flow in both testicles. IMPRESSION: Single small epididymal head cysts on both the left and the right measuring up to 3 millimeters. These are of doubtful clinical significance. Otherwise normal study. Dictated by: Jeremiah Ramos M.D. on 01/30/2022 at 16:22 Approved by: Jeremiah Ramos M.D. on 01/30/2022 at 16:24
== END ==
PROVIDERS: PCP Nurse Practitioner; Referring Provider Nurse Practitioner; Visit Provider Nurse Practitioner
DX: N50.3 Cyst of epididymis (principal); N50.819 Testicular pain, unspecified
CPT/HCPCS: 76870

== ENCOUNTER → 2022-04-11 08:35 | Outpatient (CLI) | payer OTHER, MEDICAID, SELFPAY ==
[2022-04-11 09:29] LABS: Alanine Aminotransferase 26 IU/L (<50); Albumin 4.6 g/dL (3.5-5.0); Albumin Globulin Ratio 1.4 (1.0-2.8); Alkaline Phosphatase 43 U/L (38-126); Aspartate Aminotransferase 22 IU/L (17-59); BUN Creatinine Ratio 14.8 (6-22); Bilirubin Total 0.8 mg/dL (0.2-1.3); Blood Urea Nitrogen 12 mg/dL (9-20); Calcium 9.9 mg/dL (8.4-10.2); Carbon Dioxide 27 mmol/L (22-32); Chloride 101 mmol/L (98-107); Estimated Glomerular Filt Rate > 60 mL/min (>60); Globulin 3.2 g/dL (1.7-4.1); Glucose 99 mg/dL (70-100); HEMOLYSIS < 15 (0-50); Potassium 3.9 mmol/L (3.4-5.1); Sodium 140 mmol/L (137-145); Total Protein 7.8 g/dL (6.3-8.2)
[2022-04-11 09:34] LABS: Add Manual Diff / Slide Review NO; Basophils Absolute Auto 0 /uL (0-100); Basophils Percent Auto 0.5 % (0-2); Eosinophils Absolute Auto 200 /uL (0-450); Eosinophils Percent Auto 2.1 % (2-4); Hematocrit 43.5 % (41-53); Hemoglobin 15.1 g/dL (13.5-17.5); Lymphocytes Absolute Auto 3800 /uL (1100-4500); Mean Corpuscular HGB Conc 34.8 % (30-36); Mean Corpuscular Hemoglobin 31.3 PG (26-34); Mean Corpuscular Volume 89.9 fL (80-100); Monocytes Absolute Auto 1100 /uL (0-900); Monocytes Percent Auto 11.3 % (3-14); Neutrophils Absolute Auto 4500 /uL (1500-7000); Neutrophils Percent Auto 47.1 % (50-75); Platelet Count 250 X10^3/uL (150-400); Red Blood Cell Count 4.83 X10^6/uL (4.5-5.9); Red Cell Distribution Width 12.8 % (11.6-14.8); White Blood Cell Count 9.7 X10^3/uL (4.5-11.0)
== END ==
PROVIDERS: PCP Family Medicine; Referring Provider Family Medicine; Visit Provider Family Medicine
DX: F41.9 Anxiety disorder, unspecified (principal); Q62.5 Duplication of ureter; Q63.1 Lobulated, fused and horseshoe kidney; R03.0 Elevated blood-pressure reading, without diagnosis of hypertension; R31.29 Other microscopic hematuria
CPT/HCPCS: 36415; 80053; 85025

== ENCOUNTER 2022-07-19 14:30 | Outpatient (RCR) | payer OTHER, MEDICAID, SELFPAY ==
--- NOTE | 2022-07-03 16:00 | PT.OIE ---
Current Diagnoses Testicular pain, unspecified (07/03/22) Past Medical History (Last Updated 01/29/22 @ 12:21 by JANELL Gerardo) Duplicated left renal collecting system History of colitis History of irritable bowel syndrome Horseshoe kidney Microscopic hematuria Persistent testicular pain Visit Care Team Role Provider Type Basil Tay MD Attending Provider Physician Family Provider Primary Care Provider Referring Provider Specialty: Family Practice Address: [address] [place] [address], [facility] Email: [email or web address] Physical Therapy Initial Evaluation PT-OP-A Visit Information Start: 07/02/22 15:52 Freq: Status: Active Protocol: Document 07/03/22 13:51 AMB (Rec: 07/03/22 14:30 AMB [id number]) Out-Patient Physical Therapy Visit Information Visit Information Visit Type Initial Evaluation Visit Start Time 13:45 Visit Stop Time 14:30 Total Visit Minutes 45 Visit Number 1 PT-OP-B Current Condition Start: 07/02/22 15:52 Freq: Status: Active Protocol: Document 07/03/22 13:51 AMB (Rec: 07/03/22 14:30 AMB [id number]) Current Condition History of Current Condition Onset Date 1 year ago Current Complaints testicular pain History of Current Condition Pt was diagnosed with prostatis, took a lot of antibiotics. Still had pain, it took a long time to get enough antibiotics, but now his white count is better, and pain is better but still lingering. Sitting increases pain in the testicles. Abdominal pain is more recent, worse on the left, sciatica left is a long standing issue. Walking uphill increases abdominal pain, sidelying increases testicular pain, anal sex increased testicular pain the next day (has been avoiding since). Current 1-2/ 10 pain; 3-5 [address] driving for 30 min. 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 Therapy/Recovery so needs to lift, bend, twist a lot PT-OP-C Subjective Start: 07/02/22 15:52 Freq: Status: Active Protocol: Document 07/03/22 14:43 AMB (Rec: 07/03/22 14:44 AMB [id number]) Patient Questionnaires Pelvic Pain and Urgency/Frequency Patient Symptom Scale Pelvic Pain Score 12 PT-OP-I Pelvic Floor Start: 07/02/22 15:52 Freq: Status: Active Protocol: Document 07/03/22 13:45 AMB (Rec: 07/03/22 14:54 AMB [id number]) Pelvic Floor Assessment Urine Pelvic Floor Surgery No Bowel Bowel Movement Frequency 3-5x/day [place] Stool Chart Type 1-7 6 Pelvic Clock Inter-Rectal Assessment Pain that radiates into penis with palpation of R levator ani, but doesn't necessarily radiate into testes. Contraction Ability Manual Muscle Testing Left 3 Manual Muscle Testing Right 3 Manual Muscle Testing Anterior 3 Manual Muscle Testing Posterior 3 Comments Pelvic Floor Comments Tenderness with palpation over L abdomen, doesn't really refer anywhere but more tenderness L>R PT-OP-Q Treatments Start: 07/02/22 15:52 Freq: Status: Active Protocol: Document 07/03/22 13:45 AMB (Rec: 07/03/22 14:54 AMB [id number]) Therapeutic Exercises Supine Exercises adductor stretch Reps/Minutes 30x2 cat cow Reps/Minutes x5 downward dog Reps/Minutes 10 happy baby pose Reps/Minutes 30x2 piriformis stretch Reps/Minutes 30x2 PT-OP-T Assessment and Plan Start: 07/02/22 15:52 Freq: Status: Active Protocol: Document 07/03/22 13:45 AMB (Rec: 07/07/22 09:36 AMB [id number]) Physical Therapy Assessment Rehab Potential Rehabilitation Potential Good Evaluation Complexity Number of Personal Factors/Comorbidities 1-2 Number of Body Systems Impaired 3 Clinical Presentation at Evaluation Evolving Impairments Impairments Activity Tolerance,Functional Activities,Pain Goals Two Impairment Abdominal pain Short Term Goal (STG) Himanshu will walk, uphill, downhill, uneven surfaces without abdominal pain. 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 LTG Duration 10 weeks One Impairment Testicular pain Short Term Goal (STG) Himanshu will sit for 30 minutes with 1/10 testicular pain or less. STG Duration 5 weeks Skilled Nursing Goal (LTG) Himanshu will sleep in a sidelying position without testicular pain. LTG Duration 10 weeks Assessment Summary Assessment Himanshu attends physical therapy with chronic testicular and more recent L>R abdominal pain associated with prostatis that was cleared by antibiotics but continues to be painful. He presents with very frequent bowel movements which may be compounding his abdominal pain. He had tenderness over the L abdomen, and R>L tenderness with radiating pain at the levator ani when assessed rectally. He was instructed in stretching for overly tonic pelvic floor and abdominal muscles and will benefit from continued physical therapy to progress down regulation of his painful/tight muscles. Physical Therapy Plan Frequency and Duration Frequency of Treatment 1x/Week Duration of treatment (weeks) 10 Plan of Care Start Date 07/03/22 Plan of Care End Date 09/11/22 Therapeutic Interventions Therapeutic Interventions Home Exercise Program,Manual Therapy,Self-Care/Home Management,Therapeutic Activities,Therapeutic Exercises Modalities Biofeedback,Cold Pack/Ice Massage,Electric Stimulation, Hot Packs Next Visit Focus/Plan Next Note Type Treatment Note Next Visit Plan Review stretching, consider sEMG, follow up on GI visit
--- NOTE | 2022-07-03 16:00 | PT.OPPOC ---
Physical, Occupational & Speech Therapy At [facility] Current Diagnoses Testicular pain, unspecified (07/03/22) Visit Care Team Role Provider Type Basil Tay MD Attending Provider Physician Family Provider Primary Care Provider Referring Provider Specialty: Family Practice Address: [address] [place] [address], [facility] Email: [email or web address] Plan Of Care PT-OP-T Assessment and Plan Start: 07/02/22 15:52 Freq: Status: Active Protocol: Document 07/03/22 13:45 AMB (Rec: 07/07/22 09:36 AMB [id number]) Physical Therapy Assessment Rehab Potential Rehabilitation Potential Good Evaluation Complexity Number of Personal Factors/Comorbidities 1-2 Number of Body Systems Impaired 3 Clinical Presentation at Evaluation Evolving Impairments Impairments Activity Tolerance,Functional Activities,Pain Goals Two Impairment Abdominal pain Short Term Goal (STG) Himanshu will walk, uphill, downhill, uneven surfaces without abdominal pain. 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 LTG Duration 10 weeks One Impairment Testicular pain Short Term Goal (STG) Himanshu will sit for 30 minutes with 1/10 testicular pain or less. STG Duration 5 weeks Fundraising Director Goal (LTG) Himanshu will sleep in a sidelying position without testicular pain. LTG Duration 10 weeks Assessment Summary Assessment Himanshu attends physical therapy with chronic testicular and more recent L>R abdominal pain associated with prostatis that was cleared by antibiotics but continues to be painful. He presents with very frequent bowel movements which may be compounding his abdominal pain. He had tenderness over the L abdomen, and R>L tenderness with radiating pain at the levator ani when assessed rectally. He was instructed in stretching for overly tonic pelvic floor and abdominal muscles and will benefit from continued physical therapy to progress down regulation of his painful/tight muscles. Physical Therapy Plan Frequency and Duration Frequency of Treatment 1x/Week Duration of treatment (weeks) 10 Plan of Care Start Date 07/03/22 Plan of Care End Date 09/11/22 Therapeutic Interventions Therapeutic Interventions Home Exercise Program,Manual Therapy,Self-Care/Home Management,Therapeutic Activities,Therapeutic Exercises Modalities Biofeedback,Cold Pack/Ice Massage,Electric Stimulation, Hot Packs Next Visit Focus/Plan Next Note Type Treatment Note Next Visit Plan Review stretching, consider sEMG, follow up on GI visit Plan of Care Dates Plan of Care Start Date 07/03/22 Plan of Care End Date 09/11/22 Electronically Signed by: Priya Burnette, PT 07/07/22 0936 If you are in agreement with this Plan of Care, please return a signed and dated copy. I have reviewed this Plan of Care and certify that the skilled therapy services above are required to meet the patient?s needs. Physician Signature Date Printed Name and Credentials Clinical Instructor Signature Printed Name and Credentials
--- NOTE | 2022-07-12 15:10 | PT.OTN ---
Current Diagnoses Testicular pain, unspecified (07/12/22) Physical Therapy Treatment Note PT-OP-A Visit Information Start: 07/02/22 15:52 Freq: Status: Active Protocol: Document 07/12/22 14:06 AMB (Rec: 07/12/22 15:10 AMB [id number]) Out-Patient Physical Therapy Visit Information Visit Information Visit Type Treatment Note Visit Start Time 14:10 Visit Stop Time 14:55 Total Visit Minutes 45 Visit Number 2 PT-OP-B Current Condition Start: 07/02/22 15:52 Freq: Status: Active Protocol: Document 07/03/22 13:51 AMB (Rec: 07/03/22 14:30 AMB [id number]) Current Condition History of Current Condition Onset Date 1 year ago Current Complaints testicular pain History of Current Condition Pt was diagnosed with prostatis, took a lot of antibiotics. Still had pain, it took a long time to get enough antibiotics, but now his white count is better, and pain is better but still lingering. Sitting increases pain in the testicles. Abdominal pain is more recent, worse on the left, sciatica left is a long standing issue. Walking uphill increases abdominal pain, sidelying increases testicular pain, anal sex increased testicular pain the next day (has been avoiding since). Current 1-2/ 10 pain; 3-[address] for 30 min. 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 PT-OP-I Pelvic Floor Start: 07/02/22 15:52 Freq: Status: Active Protocol: Document 07/03/22 13:45 AMB (Rec: 07/03/22 14:54 AMB [id number]) Pelvic Floor Assessment Urine Pelvic Floor Surgery No Bowel Bowel Movement Frequency 3-5x/day Medicine Bow Stool Chart Type 1-7 6 Pelvic Clock Inter-Rectal Assessment Pain that radiates into penis with palpation of R levator ani, but doesn't necessarily radiate into testes. Contraction Ability Manual Muscle Testing Left 3 Manual Muscle Testing Right 3 Manual Muscle Testing Anterior 3 Manual Muscle Testing Posterior 3 Comments Pelvic Floor Comments Tenderness with palpation over L abdomen, doesn't really refer anywhere but more tenderness L>R PT-OP-Q Treatments Start: 07/02/22 15:52 Freq: Status: Active Protocol: Document 07/12/22 14:06 AMB (Rec: 07/12/22 15:10 AMB [id number]) Therapeutic Exercises Supine Exercises IT band stretch Reps/Minutes 30x2 adductor stretch Reps/Minutes 30x2 cat cow Reps/Minutes x5 downward dog Reps/Minutes 10 happy baby pose Reps/Minutes 30x2 piriformis stretch Reps/Minutes 30x2 Standing Exercises standing hamstring Standing Exercise Name against wall Reps/Minutes 30x2 PT-OP-T Assessment and Plan Start: 07/02/22 15:52 Freq: Status: Active Protocol: Document 07/12/22 14:06 AMB (Rec: 07/12/22 15:10 AMB [id number]) Physical Therapy Assessment Goals Two Impairment Abdominal pain Short Term Goal (STG) Himanshu will walk, uphill, downhill, uneven surfaces without abdominal pain. 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 LTG Duration 10 weeks One Impairment Testicular pain Short Term Goal (STG) Himanshu will sit for 30 minutes with 1/10 testicular pain or less. STG Duration 5 weeks Penitentiary Goal (LTG) Himanshu will sleep in a sidelying position without testicular pain. LTG Duration 10 weeks Assessment Summary Assessment Himanshu is doing well reducing testicular pain. Told to d/c cat cow if it is causing nausea. Pt is being treated for silent reflux, so could have to do with positioning more than anything. Progress stretching. Physical Therapy Plan Frequency and Duration Frequency of Treatment 1x/Week Duration of treatment (weeks) 10 Plan of Care Start Date 07/03/22 Plan of Care End Date 09/11/22 Therapeutic Interventions Therapeutic Interventions Home Exercise Program,Manual Therapy,Self-Care/Home Management,Therapeutic Activities,Therapeutic Exercises Modalities Biofeedback,Cold Pack/Ice Massage,Electric Stimulation, Hot Packs Next Visit Focus/Plan Next Note Type Treatment Note Next Visit Plan Review stretching, consider sEMG
--- NOTE | 2022-07-19 15:22 | PT.OTN ---
Current Diagnoses Testicular pain, unspecified (07/19/22) Physical Therapy Treatment Note PT-OP-A Visit Information Start: 07/02/22 15:52 Freq: Status: Active Protocol: Document 07/19/22 14:35 AMB (Rec: 07/19/22 15:21 AMB [id number]) Out-Patient Physical Therapy Visit Information Visit Information Visit Type Treatment Note Visit Start Time 14:30 Visit Stop Time 15:15 Total Visit Minutes 45 Visit Number 3 PT-OP-B Current Condition Start: 07/02/22 15:52 Freq: Status: Active Protocol: Document 07/03/22 13:51 AMB (Rec: 07/03/22 14:30 AMB [id number]) Current Condition History of Current Condition Onset Date 1 year ago Current Complaints testicular pain History of Current Condition Pt was diagnosed with prostatis, took a lot of antibiotics. Still had pain, it took a long time to get enough antibiotics, but now his white count is better, and pain is better but still lingering. Sitting increases pain in the testicles. Abdominal pain is more recent, worse on the left, sciatica left is a long standing issue. Walking uphill increases abdominal pain, sidelying increases testicular pain, anal sex increased testicular pain the next day (has been avoiding since). Current 1-2/ 10 pain; 3-[address] for 30 min. 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 lift, bend, twist a lot PT-OP-C Subjective Start: 07/02/22 15:52 Freq: Status: Active Protocol: Document 07/19/22 14:35 AMB (Rec: 07/19/22 15:21 AMB [id number]) OP-PT Subjective Patient Comments Patient Comments Feeling better and doing stretches PT-OP-I Pelvic Floor Start: 07/02/22 15:52 Freq: Status: Active Protocol: Document 07/03/22 13:45 AMB (Rec: 07/03/22 14:54 AMB [id number]) Pelvic Floor Assessment Urine Pelvic Floor Surgery No Bowel Bowel Movement Frequency 3-5x/day [place] Stool Chart Type 1-7 6 Pelvic Clock Inter-Rectal Assessment Pain that radiates into penis with palpation of R levator ani, but doesn't necessarily radiate into testes. Contraction Ability Manual Muscle Testing Left 3 Manual Muscle Testing Right 3 Manual Muscle Testing Anterior 3 Manual Muscle Testing Posterior 3 Comments Pelvic Floor Comments Tenderness with palpation over L abdomen, doesn't really refer anywhere but more tenderness L>R PT-OP-Q Treatments Start: 07/02/22 15:52 Freq: Status: Active Protocol: Document 07/19/22 14:35 AMB (Rec: 07/19/22 15:21 AMB [id number]) Therapeutic Exercises Supine Exercises IT band stretch Reps/Minutes 30x2 adductor stretch Reps/Minutes 30x2 downward dog Reps/Minutes 10 happy baby pose Reps/Minutes 30x2 piriformis stretch Reps/Minutes 30x2 PT-OP-T Assessment and Plan Start: 07/02/22 15:52 Freq: Status: Active Protocol: Document 07/19/22 14:35 AMB (Rec: 07/19/22 15:21 AMB [id number]) Physical Therapy Assessment Goals Two Impairment Abdominal pain Short Term Goal (STG) Himanshu will walk, uphill, downhill, uneven surfaces without abdominal pain. 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 LTG Duration MET One Impairment Testicular pain Short Term Goal (STG) Himanshu will sit for 30 minutes with 1/10 testicular pain or less. STG Duration MET Mcc Goal (LTG) Himanshu will sleep in a sidelying position without testicular pain. LTG Duration 10 weeks Assessment Summary Assessment Himanshu is doing well. overall he really isn't noticing pain at this point and has been able to continue with his stretches, so he is comfortable canceling further appointments and will be put on hold for a month, if we dont' hear from him in that time ok to d/c. Physical Therapy Plan Frequency and Duration Frequency of Treatment 1x/Week Duration of treatment (weeks) 10 Plan of Care Start Date 07/03/22 Plan of Care End Date 09/11/22 Therapeutic Interventions Therapeutic Interventions Home Exercise Program,Manual Therapy,Self-Care/Home Management,Therapeutic Activities,Therapeutic Exercises Modalities Biofeedback,Cold Pack/Ice Massage,Electric Stimulation, Hot Packs Next Visit Focus/Plan Next Note Type Treatment Note Next Visit Plan Review stretching, consider sEMG
--- NOTE | 2022-11-13 14:28 | PT.OPDS ---
Current Diagnoses Testicular pain, unspecified (07/19/22) Visit Care Team Role Provider Type Basil Tay MD Attending Provider Physician Family Provider Primary Care Provider Referring Provider Specialty: Family Practice Address: [address] [place] [address], [facility] Email: [email or web address] Visit Number Visit Number 3 Discharge Summary PT-OP-B Current Condition Start: 07/02/22 15:52 Freq: Status: Active Protocol: Document 07/03/22 13:51 AMB (Rec: 07/03/22 14:30 AMB [id number]) Current Condition History of Current Condition Onset Date 1 year ago Current Complaints testicular pain History of Current Condition Pt was diagnosed with prostatis, took a lot of antibiotics. Still had pain, it took a long time to get enough antibiotics, but now his white count is better, and pain is better but still lingering. Sitting increases pain in the testicles. Abdominal pain is more recent, worse on the left, sciatica left is a long standing issue. Walking uphill increases abdominal pain, sidelying increases testicular pain, anal sex increased testicular pain the next day (has been avoiding since). Current 1-2/ 10 pain; 3-[address] for 30 min. 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[employer] Therapy/Recovery so needs to lift, bend, twist a lot PT-OP-C Subjective Start: 07/02/22 15:52 Freq: Status: Active Protocol: Document 07/19/22 14:35 AMB (Rec: 07/19/22 15:21 AMB [id number]) OP-PT Subjective Patient Comments Patient Comments Feeling better and doing stretches PT-OP-I Pelvic Floor Start: 07/02/22 15:52 Freq: Status: Active Protocol: Document 07/03/22 13:45 AMB (Rec: 07/03/22 14:54 AMB [id number]) Pelvic Floor Assessment Urine Pelvic Floor Surgery No Bowel Bowel Movement Frequency 3-5x/day [place] Stool Chart Type 1-7 6 Pelvic Clock Inter-Rectal Assessment Pain that radiates into penis with palpation of R levator ani, but doesn't necessarily radiate into testes. Contraction Ability Manual Muscle Testing Left 3 Manual Muscle Testing Right 3 Manual Muscle Testing Anterior 3 Manual Muscle Testing Posterior 3 Comments Pelvic Floor Comments Tenderness with palpation over L abdomen, doesn't really refer anywhere but more tenderness L>R PT-OP-T Assessment and Plan Start: 07/02/22 15:52 Freq: Status: Active Protocol: Document 11/13/22 14:27 AMB (Rec: 11/13/22 14:28 [facility] [id number]) Physical Therapy Assessment Goals Two Impairment Abdominal pain Short Term Goal (STG) Himanshu will walk, uphill, downhill, uneven surfaces without abdominal pain. 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 LTG Duration MET One Impairment Testicular pain Short Term Goal (STG) Himanshu will sit for 30 minutes with 1/10 testicular pain or less. STG Duration MET Pharmacy Consultant Goal (LTG) Himanshu will sleep in a sidelying position without testicular pain. LTG Duration MET Assessment Summary Assessment At last visit Himanshu was doign well, not really having pain, put on hold and he has not reached out ot the clinic in that time, so he is now discharged. Physical Therapy Plan Discharge Physical Therapy Discharge Reasons Goals Met
== END 2022-11-14 11:22 | disposition home or self-care (01) ==
LOC: PHYS 14:30
PROVIDERS: Family Provider Family Medicine; PCP Family Medicine; Referring Provider Family Medicine; Visit Provider Family Medicine
DX: N50.819 Testicular pain, unspecified (principal)
CPT/HCPCS: 97110; 97162